=== PATIENT | male | born 1980 | race Caucasian/White ===

== ENCOUNTER 2016-07-02 08:06 | Emergency (ER) | payer BC ==
[~2016-07-02] VITALS: Ht 180.3 cm; Wt 79.4 kg
[2016-07-02 08:08] VITALS: BP 118/76
--- NOTE | 2016-07-02 08:13 | NUR ---
PT AMBULATED TO BED 3 AT THIS TIME,
--- NOTE | 2016-07-02 08:20 | NUR ---
35/M BIB FAMILY C/O DIZZINESS. PT STATES HE WAS FEELING NAUSEATED AROUND 0600. PT STATES HE HAS NO VOMITING/DIARRHEA, TRAUMA OR INJURY. PT DENIES MEDICAL HX. AAOx4, PERRLA, BREATHING EVEN AND UNLABORED. ERMD NOTIFIED OF PATIENT STATUS.
--- NOTE | 2016-07-02 08:21 | NUR ---
Patient being evaluated by physician at bedside.
[2016-07-02] MEDS ORDERED: ONDANSETRON 4 MG ODT PO ONE (08:25)
[2016-07-02] MEDS ORDERED: MECLIZINE 25 MG TAB PO ONE (08:25)
--- NOTE | 2016-07-02 09:19 | NUR ---
Patient discharged with v/s stable. Written and verbal after care instructions given and explained. Patient alert, oriented and verbalized understanding of instructions. Ambulatory with steady gait. All questions addressed prior to discharge. ID band removed. Patient advised to follow up with PMD. Rx of MECLIZINE 25MG TABLET AND ZOFRAN ODT 4MG given. Patient educated on indication of medication including possible reaction and side effects. Opportunity to ask questions provided and answered.
[2016-07-02 09:20] VITALS: BP 121/72
== END 2016-07-02 09:19 | disposition home or self-care (01) ==
LOC: MED 08:06
DX: R42 Dizziness and giddiness (principal); R11.0 Nausea
CPT/HCPCS: 36415; 80053; 85025; 93005; 99285; J8597; S0119

== ENCOUNTER 2018-03-30 18:23 | Emergency (ER) | payer BC ==
[~2018-03-30] VITALS: Ht 180.3 cm; Wt 74.8 kg
[2018-03-30 18:34] VITALS: BP 115/63
[2018-03-30] MEDS ORDERED: NACL 0.9% 1,000 ML IV ONE ×2 (19:45)
[2018-03-30] MEDS ORDERED: ONDANSETRON 4 MG/2 ML VIAL IVP ONE (19:45)
[2018-03-30 20:31] LABS: BASOPHILS # (AUTO) 0.1 K/uL (0.00-0.22); BASOPHILS % (AUTO) 1.2 % (0.0-2.0); HEMATOCRIT 41.9 % (36-52); HEMOGLOBIN 13.9 g/dL (12.0-18.0); LYMPHOCYTES # (AUTO) 0.5 K/uL (2.0-11.5); LYMPHOCYTES % (AUTO) 4.8 % (20.5-51.1); MEAN CORPUSCULAR HEMOGLOBIN 29 pg (27-31); MEAN CORPUSCULAR HGB CONC 33 g/dL (33-37); MEAN CORPUSCULAR VOLUME 85.8 fL (80-94); MONOCYTES # (AUTO) 0.6 K/uL (0.8-1.0); MONOCYTES % (AUTO) 6.6 % (1.7-9.3); NEUTROPHILS # (AUTO) 8.3 K/uL (1.8-7.7); NEUTROPHILS % (AUTO) 87.4 % (42.2-75.2); PLATELET COUNT (AUTO) 185 K/uL (140-450); RED BLOOD CELL COUNT(AUTO) 4.88 MIL/uL (4.20-6.10); RED CELL DISTRIBUTION WIDTH 13.2 % (11.6-13.7); WHITE BLOOD COUNT (AUTO) 9.4 K/uL (4.8-10.8)
[2018-03-30 20:42] LABS: ANION GAP 12.6 (8-16); CARBON DIOXIDE 24.7 mmol/L (21-32); CREATININE 0.8 mg/dL (0.7-1.3); POTASSIUM 3.3 mmol/L (3.5-5.1)
[2018-03-30 20:49] LABS: ALBUMIN 3.5 g/dL (3.4-5.0); TOTAL BILIRUBIN 0.7 mg/dL (0.0-1.0)
[2018-03-30] MEDS ORDERED: CALCIUM CARB 600 MG TAB PO ONE (21:45)
[2018-03-30] MEDS ORDERED: POTASSIUM CHLORIDE 10 MEQ TABER PO ONE (21:45)
[2018-03-30 22:19] VITALS: BP 104/62
== END 2018-03-30 22:20 | disposition home or self-care (01) ==
LOC: MED 18:23
DX: I10 Essential (primary) hypertension (principal); E86.0 Dehydration
CPT/HCPCS: 36415; 71045; 80053; 85025; 93005; 96361; 96374; 99284; J2405; J7030